=== PATIENT | male | born 2000 | race Caucasian/White ===

== ENCOUNTER 2021-05-07 23:53 | Emergency (ER) | payer OTHER ==
[~2021-05-07] VITALS: Ht 177.8 cm; Wt 84.7 kg
[2021-05-08 01:10] LABS: RSV AMPLIFICATION NEGATIVE (NEGATIVE)
--- NOTE | 2021-05-08 02:09 | REPVR ---
PROCEDURE INFORMATION: Exam: XR Chest Exam date and time: 05/08/2021 1:26 AM Age: 21 years old Clinical indication: Shortness of breath TECHNIQUE: Imaging protocol: XR of the chest. Views: 2 views. COMPARISON: No relevant prior studies available. FINDINGS: Lungs: Unremarkable. No consolidation. No pulmonary edema. Pleural spaces: Unremarkable. No pleural effusion. No pneumothorax. Heart/Mediastinum: Unremarkable. No cardiomegaly. Bones/joints: Unremarkable. IMPRESSION: No acute findings. Electronically signed by: Alex Kemp On 05/08/2021 02:09:20 AM
[2021-05-08] MEDS ORDERED: IPRATROPIUM 0.5MG/ALBUTEROL 2.5MG INH SOL UD 3ML (DUONEB) NEB ONE (04:45)
[2021-05-08] MEDS ORDERED: PROAAER10 INH (05:17)
[2021-05-08] MEDS ORDERED: PRED20TA PO (05:17)
[2021-05-08 05:30] VITALS: BP 112/59
== END 2021-05-08 05:31 | disposition home or self-care (01) ==
LOC: M ED 23:53
DX: J98.01 Acute bronchospasm (principal)

== ENCOUNTER → 2021-05-13 | Outpatient (CLI) | payer OTHER ==
[~2021-05-13] MED LIST: PRED20TA PO; PROAAER10 INH
--- NOTE | 2021-05-13 15:41 | PFTRPT ---
Site: [facility], [address] [place] [address], [id number] ID: [id number] Name: REESE CAMPBELL Visit Date: 05/13/2021 Second ID: [id number] Referring Doctor: Jessica Bear Reviewing Doctor: Willy Montilla MD Stock Pitcher: Mandie HAND RRT Age: 21 : 2000 Sex: Male Race: Height: 70.00 Inches Weight: 180.00 Lbs BSA: 2.00 Order IDs: [id number] Requested Test(s): <RESP-PFT.PFT B/A> Diagnosis: ASTHMA test meet the ATS standards for acceptability and repeatability. Pt was given four puffs of albuterol for post bronchodilator. Review Status: Not Reviewed Pre-Bronch Post-Bronch Pred Actual %Pred Actual %Chng SPIROMETRY FVC (L) 5.60 4.33 77 5.16 19 FEV1 (L) 4.68 2.94 62 3.89 32 FEV1/FVC (%) 84 68 80 75 10 FEF 25% (L/sec) 8.52 4.53 53 6.86 51 FEF 50% (L/sec) 5.89 2.36 39 4.58 94 FEF 75% (L/sec) 2.35 1.29 54 2.52 95 FEF 25-75% (L/sec) 4.96 1.84 37 4.18 126 FEF Max (L/sec) 10.08 6.63 65 7.16 8 FIVC (L) 4.36 5.18 18 FIF 50% (L/sec) 5.76 4.16 72 4.19 FIF Max (L/sec) 4.20 4.48 6 MVV (L/min) 190 81 42 Expiratory Time (sec) 5.29 6.04 14 Back Extrap Vol (L) 0.13 0.24 83 Time To FEFmax (sec) 0.106 0.123 16 LUNG VOLUMES SVC (L) 5.45 4.94 90 IC (L) 3.59 3.36 93 ERV (L) 1.86 1.58 84 TGV (L) 3.28 3.75 114 RV (Pleth) (L) 1.42 2.17 152 TLC (Pleth) (L) 6.87 7.11 103 RV/TLC (Pleth) (%) 20 31 152 DIFFUSION DLCOunc (ml/min/mmHg) 37.55 36.63 97 DL/VA (ml/min/mmHg/L) 5.47 5.62 102 VA (L) 6.87 6.51 94 BHT (sec) 10.50 IVC (L) 4.94 TLC (SB) (L) 6.66 AIRWAYS RESISTANCE Raw (cmH2O/L/s) 1.45 0.80 55 Gaw (L/s/cmH2O) 1.03 1.30 125 sRaw (cmH2O*s) 4.76 3.03 63 sGaw (1/cmH2O*s) 0.20 0.35 172
== END ==
LOC: M CARPUL 14:52 → EDUNIT# 15:00
DX: J45.909 Unspecified asthma, uncomplicated (principal)

== ENCOUNTER 2021-06-11 05:01 | Emergency (ER) | payer OTHER ==
[~2021-06-11] VITALS: Ht 177.8 cm; Wt 81.8 kg
[2021-06-11] MEDS ORDERED: LEVALBUTEROL HFA 45MCG/ACT 15 GM INHALER INH ONE (07:15)
[2021-06-11] MEDS ORDERED: LEVALBUTEROL 1.25 MG/0.5 ML CONCENTRATE NEB NEB ONE (07:45)
--- OUTSIDE RECORDS SUMMARY | 2021-06-11 08:06 | CCD ---
Author Author [facility] Organization [facility] Address Unknown Phone Unavailable Support Name Relationship Address Phone NO, CONTACT EMERGENCY Next Of Kin [address] [place], [place] [id number] [facility] Next Of Kin [address] [place] [address] Unavailable Re-disclosure Warning The records that you are about to access may contain information from federally-assisted alcohol or drug abuse programs. If such information is present, then the following federally mandated warning applies: This information has been disclosed to you from records protected by federal confidentiality rules (42 CFR part 2). The federal rules prohibit you from making any further disclosure of this information unless further disclosure is expressly permitted by the written consent of the person to whom it pertains or as otherwise permitted by 42 CFR part 2. A general authorization for the release of medical or other information is NOT sufficient for this purpose. The Federal rules restrict any use of the information to criminally investigate or prosecute any alcohol or drug abuse patient.The records that you are about to access may contain highly sensitive health information, the redisclosure of which is protected by Article 27-F of the [facility] Public Health law. If you continue you may have access to information: Regarding HIV / AIDS; Provided by facilities licensed or operated by the [facility] Office of Mental Health; or Provided by the [facility] Office for People With Developmental Disabilities. If such information is present, then the following [facility] mandated warning applies: This information has been disclosed to you from confidential records which are protected by state law. State law prohibits you from making any further disclosure of this information without the specific written consent of the person to whom it pertains, or as otherwise permitted by law. Any unauthorized further disclosure in violation of state law may result in a fine or fpc sentence or both. A general authorization for the release of medical or other information is NOT sufficient authorization for further disc losure. Medications No Information Insurance Providers Payer name Policy type / Coverage type Policy ID Covered green party ID Covered green party's relationship to martin Policy Martin Plan Information [facility] [id number] [facility] [id number] [facility] [id number] Problems, Conditions, and Diagnoses No Information Surgeries/Procedures No Information Results ID Date Data Source [id number] 05/08/2021 12:13:00 AM EST [facility] Name Value Range Interpretation Code Description Data Amy rce(s) Supporting Document(s) SARS coronavirus 2 RNA [Presence] in Res piratory specimen by RODY with probe detection NEGATIVE [facility] This lab was ordered by [facility] a nd reported by [facility]. Procedure Social History No Information
[2021-06-11] MEDS ORDERED: methylPREDNISolone 125MG 2ML VIAL IM ONE (08:25)
--- NOTE | 2021-06-11 09:22 | REP ---
INDICATION: sob COMPARISON: 05/08/2021 TECHNIQUE: PA and lateral. FINDINGS: The mediastinum and cardiac silhouette are normal. The lung chapin are clear and without acute consolidation, effusion, or pneumothorax. The skeletal structures are intact and normal. IMPRESSION: No acute cardiopulmonary process. <Electronically signed by Mike Lara > 06/11/21 0918
[2021-06-11] MEDS ORDERED: MEDR4PAK PO (09:30)
[2021-06-11 09:37] VITALS: BP 129/74
== END 2021-06-11 09:39 | disposition home or self-care (01) ==
LOC: M ED 05:01
DX: J45.901 Unspecified asthma with (acute) exacerbation (principal)
CPT/HCPCS: 71046; 87798; 94640; 96372; 99283; J2930